=== PATIENT | male | born 1965 | race Caucasian/White ===

== ENCOUNTER 2022-08-09 08:34 | Observation (INO) | payer BC ==
[2022-08-09] MEDS ORDERED: ALPRAZolam 0.25 MG TABLET PO ONE (09:09)
[2022-08-09] MEDS ORDERED: METOPROLOL TARTRATE 5 MG/5 ML VIAL IVPUSH ONE ×2 (09:09→11:18)
[2022-08-09] MEDS ORDERED: METOPROLOL TARTRATE 5 MG/5 ML VIAL ONE ×2 (09:19→11:29)
[2022-08-09] MEDS ORDERED: ALPRAZolam 0.25 MG TABLET ONE (09:20)
[2022-08-09 09:41] LABS: HEMATOCRIT 44.2 % (35.4-49); MCH 33.1 pg (25.7-33.7); MCHC 36.1 g/dl (32.0-35.9); MEAN CELL VOLUME 91.7 fl (80-96); PLATELET COUNT 197.1 10^3/uL (134-434); RBC 4.82 10^6/uL (4.00-5.60); RDW 14.7 % (11.9-15.9); WHITE BLOOD COUNT 7.1 10^3/uL (4.0-10.8)
[2022-08-09 09:44] LABS: CALCIUM 8.4 mg/dl (8.5-10); CREATININE 0.7 mg/dl (0.55-1.3); TOT PROT 7.4 g/dl (6.4-8.2)
[2022-08-09] MEDS ORDERED: METOPROLOL TARTRATE 50 MG TABLET (FP) ONE (09:45)
[2022-08-09] MEDS ORDERED: METOPROLOL TARTRATE 50 MG TABLET (FP) PO ONE (09:45)
[2022-08-09 09:49] LABS: PLATELET ESTIMATE ADEQUATE
[2022-08-09] MEDS ORDERED: OLANZapine 5 MG TABLET PO ONE (09:49)
[2022-08-09] MEDS ORDERED: METOPROLOL TARTRATE 25 MG TABLET (FP) PO ONE (11:18)
[2022-08-09] MEDS ORDERED: METOPROLOL TARTRATE 25 MG TABLET (FP) ONE (11:30)
[2022-08-09 12:26] LABS: COCAINE, UR NEGATIVE (NEGATIVE); PHENCYCLIDINE,URINE NEGATIVE (NEGATIVE); URINE BENZODIAZEPINES NEGATIVE (NEGATIVE)
[2022-08-09 12:28] LABS: METHADONE, UR NEGATIVE (NEGATIVE); OPIATES, URI NEGATIVE (NEGATIVE); URINE AMPHETAMINES NEGATIVE (NEGATIVE); URINE BARBITURATES NEGATIVE (NEGATIVE)
[2022-08-09 14:24] VITALS: BMI 34.0
[2022-08-09] MEDS ORDERED: hydrOXYzine PAMOATE 25 MG CAPSULE (FP) PO PRN (16:41)
[2022-08-09] MEDS ORDERED: dilTIAZem HCL 50 MG/10 ML - 10 ML VIAL IVPUSH ONE (17:28)
[2022-08-09] MEDS ORDERED: dilTIAZem HCL 30 MG TABLET PO SCH (18:00)
[2022-08-09] MEDS: dilTIAZem HCL 30 MG TABLET PO SCH (18:18)
[2022-08-09] MEDS: METOPROLOL TARTRATE 50 MG TABLET (FP) PO SCH (22:10)
[2022-08-10] MEDS: dilTIAZem HCL 30 MG TABLET PO SCH ×3 (00:25→13:17)
[2022-08-10 08:26] LABS: ALBUMIN 3.9 g/dl (3.4-5.0); BILIRUBIN,TOTAL 1.9 mg/dl (0.2-1); CALCIUM 9.2 mg/dl (8.5-10); CREATININE 0.9 mg/dl (0.55-1.3); MAGNESIUM 1.9 mg/dL (1.8-2.4); PHOSPHOROUS 3.6 mg/dl (2.5-4.9); TOT PROT 7.4 g/dl (6.4-8.2)
[2022-08-10] MEDS: SERTRALINE HCL 25 MG TABLET (FP) PO SCH (09:26)
[2022-08-10] MEDS: ASPIRIN 81 MG CHEWABLE TABLETS PO SCH (09:26)
[2022-08-10] MEDS: METOPROLOL TARTRATE 50 MG TABLET (FP) PO SCH ×2 (09:26→21:22)
[2022-08-10] MEDS: ENOXAPARIN NA (PORCINE) 40 MG/0.4 ML DISP.SYRIN SQ SCH (09:26)
[2022-08-10 10:08] LABS: BASO % 0.5 % (0-2.0); EOS % 1.1 % (0-4.5); HEMATOCRIT 44.8 % (35.4-49); HEMOGLOBIN 15.7 GM/dL (11.7-16.9); LYMPH % 18.8 % (8-40); MCHC 35.1 g/dl (32.0-35.9); MEAN CELL VOLUME 91.1 fl (80-96); MEAN PLT VOLUME 7.4 fl (7.5-11.1); MONO % 12.6 % (3.8-10.2); PLATELET COUNT 205 10^3/uL (134-434); RBC 4.91 M/mm3 (4.00-5.60); RDW 14.5 % (11.9-15.9)
[2022-08-10] MEDS ORDERED: ALPRAZolam 1 MG TABLET PO ONE (12:45)
[2022-08-11 03:13] VITALS: TEMP 98.2
[2022-08-11 06:33] VITALS: PULSE 111; RESP 20
[2022-08-11 08:49] LABS: ALBUMIN 3.8 g/dl (3.4-5.0); CREATININE 0.9 mg/dl (0.55-1.3); TOT PROT 7.2 g/dl (6.4-8.2)
[2022-08-11 09:06] VITALS: BP 153/96
[2022-08-11] MEDS: ASPIRIN 81 MG CHEWABLE TABLETS PO SCH (09:06)
[2022-08-11] MEDS: SERTRALINE HCL 25 MG TABLET (FP) PO SCH (09:07)
[2022-08-11] MEDS: ENOXAPARIN NA (PORCINE) 40 MG/0.4 ML DISP.SYRIN SQ SCH (09:07)
[2022-08-11 09:35] LABS: BASO % 0.6 % (0-2.0); EOS % 1.8 % (0-4.5); HEMATOCRIT 43.8 % (35.4-49); HEMOGLOBIN 15.3 GM/dL (11.7-16.9); LYMPH % 21.2 % (8-40); MCHC 34.9 g/dl (32.0-35.9); MEAN CELL VOLUME 91.6 fl (80-96); MEAN PLT VOLUME 7.7 fl (7.5-11.1); MONO % 10.7 % (3.8-10.2); NEUT % 65.7 % (42.8-82.8); PLATELET COUNT 201 10^3/uL (134-434); RBC 4.78 M/mm3 (4.00-5.60); WHITE BLOOD COUNT 6.7 K/mm3 (4.0-10.0)
[2022-08-11] MEDS ORDERED: VALSARTAN 160 MG TABLET PO SCH (10:00)
== END 2022-08-11 11:06 | disposition home or self-care (01) ==
LOC: FER 08:34 → FM/S 12:07
PROVIDERS: ADMIT Internal Medicine; ATTEND Internal Medicine
PROC: 3E033GC Introduction of Other Therapeutic Substance into Peripheral Vein, Percutaneous Approach (ICD-10-PCS; principal; 2022-08-09)
PROC: 3E013GC Introduction of Other Therapeutic Substance into Subcutaneous Tissue, Percutaneous Approach (ICD-10-PCS; 2022-08-09)
DX: I48.91 Unspecified atrial fibrillation (principal); F41.9 Anxiety disorder, unspecified; F10.10 Alcohol abuse, uncomplicated; F32.A Depression, unspecified; I10 Essential (primary) hypertension; G47.33 Obstructive sleep apnea (adult) (pediatric); Z99.89 Dependence on other enabling machines and devices
CPT/HCPCS: 36415; 71045-TC-FY; 80053; 80307; 82550; 82553; 83735; 84100; 84484; 85025; 85027; 93005; 94660; 96372; 96374; 96376; 99285-25; C9803-CS; G0378; U0003; U0005